=== PATIENT | female | born 1985 | race American Indian/Alaskan Native ===

== ENCOUNTER 2017-10-08 22:50 | Emergency (ER) | payer MEDICAID ==
[2017-10-09 00:54] VITALS: BP 125/57
== END 2017-10-09 01:00 | disposition left against medical advice (07) ==
LOC: ED 22:50
DX: J45.909 Unspecified asthma, uncomplicated (principal); Z86.711 Personal history of pulmonary embolism; Z53.21 Procedure and treatment not carried out due to patient leaving prior to being seen by health care provider

== ENCOUNTER 2018-01-05 17:18 | Emergency (ER) | payer MEDICAID ==
[2018-01-05 18:16] VITALS: BP 125/80
[2018-01-05 19:45] LABS: Bilirubin,Urine NEG (Negative); Blood,Urine NEG (Negative); Color,Urine Yellow (Yellow); Mucus,Urine 3+ /HPF
[2018-01-05 20:18] LABS: HCG Qualitative,Urine Negative (Negative)
--- NOTE | 2018-01-05 20:53 | Emergency Department Report ---
ED Female HPI - General Chief complaint: Urogenital-Female Stated complaint: STOMACH PAIN/TOOTH ACHE Time Seen by Provider: 01/05/18 20:29 Source: patient Mode of arrival: Ambulatory Limitations: No Limitations - History of Present Illness Initial comments: Patient present to complaint was dysuria frequency urgency no vaginal discharge no vaginal bleeding last menstrual cycle was 8 weeks ago states only when , same complaint is normal history of dental caries symptoms aching with hot and cold sensitivity, patient denies throat or ear pain . No exacerbating or relieving factors to either problem is no fever no chills no nausea no vomiting Complaint: dysuria Onset/Timin -: week(s) Severity: mild Severity scale (0 -10): 2 Improves with: none Worsens with: urination Are you Now?: No Last Menstrual Period: 11/03/17 EDC: 08/10/18 Associated Symptoms: dysuria - Related Data Sexually active: Yes : 5 Para: 5 A: 0 Home Medications Medication Instructions Recorded Confirmed Last Taken Enoxaparin [Lovenox] 0 ml SUB-Q QDAY 04/24/14 04/24/14 Unknown Vits96/Iron Fum/Folic 1 each PO QDAY 04/24/14 04/24/14 Unknown [ Tablet] Previous Rx's Medication Instructions Recorded Last Taken Type Acetaminophen/Codeine [Tylenol #3] 1 tab PO Q6H PRN #10 tab 07/31/14 Unknown Rx Amoxicillin [Amoxicillin TAB] 875 mg PO BID #20 tablet 07/31/14 Unknown Rx Acetaminophen [Mapap Arthritis 650 mg PO Q8HR PRN #20 tablet.er 10/20/14 Unknown Rx Pain] Ibuprofen [Motrin] 600 mg PO Q8H PRN #20 tablet 10/20/14 Unknown Rx Acetaminophen/Codeine [Tylenol #3] 1 tab PO Q6H PRN #14 tab 05/11/15 Unknown Rx Amoxicillin/K Clav Tab [Augmentin 1 tab PO Q12HR #14 tab 05/11/15 Unknown Rx 875 mg] Ondansetron [Zofran Odt] 4 mg PO QID #14 tab.rapdis 05/11/15 Unknown Rx Cephalexin [Keflex] 500 mg PO TID #30 capsule 01/05/18 Unknown Rx Chlorhexidine Mouthwash [Peridex] 15 ml MM BID #1 bottle 01/05/18 Unknown Rx Ibuprofen [Ibu] 800 mg PO TID PRN #30 tablet 01/05/18 Unknown Rx Allergies Allergy/AdvReac Type Severity Reaction Status Date / Time No Known Allergies Allergy Verified 04/24/14 00:47 ED Review of Systems ROS: Stated complaint: STOMACH PAIN/TOOTH ACHE Other details as noted in HPI Constitutional: denies: chills, fever Eyes: denies: eye pain, eye discharge, vision change ENT: dental pain. denies: ear pain, throat pain, hearing loss, epistaxis, congestion Respiratory: denies: cough, shortness of breath, wheezing Cardiovascular: denies: chest pain, palpitations Endocrine: no symptoms reported Gastrointestinal: denies: abdominal pain, nausea, diarrhea Genitourinary: urgency, dysuria, frequency. denies: hematuria, discharge, abnormal menses, dyspareunia Musculoskeletal: denies: back pain, joint swelling, arthralgia Skin: denies: rash, lesions Neurological: denies: headache, weakness, paresthesias Psychiatric: denies: anxiety, depression Hematological/Lymphatic: denies: easy bleeding, easy bruising ED Past Medical Hx - Past Medical History Hx Hypertension: No Hx Diabetes: No Hx Pulmonary Embolism: Yes (2011 @ [facility]) Hx Renal Disease: No Hx Sickle Cell Disease: No Hx Seizures: No Hx Asthma: No Hx HIV: No Additional medical history: PE 2011 - Surgical History Additional Surgical History: D&C 06/2013. - Social History Smoking Status: Never Smoker Substance Use Type: None - Medications Home Medications: Home Medications Medication Instructions Recorded Confirmed Last Taken Type Enoxaparin [Lovenox] 0 ml SUB-Q QDAY 04/24/14 04/24/14 Unknown History Vits96/Iron Fum/Folic 1 each PO QDAY 04/24/14 04/24/14 Unknown History [ Tablet] Acetaminophen/Codeine [Tylenol #3] 1 tab PO Q6H PRN #10 tab 07/31/14 Unknown Rx Amoxicillin [Amoxicillin TAB] 875 mg PO BID #20 tablet 07/31/14 Unknown Rx Acetaminophen [Mapap Arthritis 650 mg PO Q8HR PRN #20 tablet.er 10/20/14 Unknown Rx Pain] Ibuprofen [Motrin] 600 mg PO Q8H PRN #20 tablet 10/20/14 Unknown Rx Acetaminophen/Codeine [Tylenol #3] 1 tab PO Q6H PRN #14 tab 05/11/15 Unknown Rx Amoxicillin/K Clav Tab [Augmentin 1 tab PO Q12HR #14 tab 05/11/15 Unknown Rx 875 mg] Ondansetron [Zofran Odt] 4 mg PO QID #14 tab.rapdis 05/11/15 Unknown Rx Cephalexin [Keflex] 500 mg PO TID #30 capsule 01/05/18 Unknown Rx Chlorhexidine Mouthwash [Peridex] 15 ml MM BID #1 bottle 01/05/18 Unknown Rx Ibuprofen [Ibu] 800 mg PO TID PRN #30 tablet 01/05/18 Unknown Rx ED Physical Exam - General Limitations: No Limitations General appearance: alert, in no apparent distress - Head Head exam: Present: atraumatic, normocephalic - Eye Eye exam: Present: normal appearance - Expanded ENT Exam Expanded Teeth exam: Present: dental tenderness # (18 mild erythema mild gum swelling no facial swelling no focal abscess ) - Neck Neck exam: Present: normal inspection, full ROM. Absent: tenderness, lymphadenopathy, thyromegaly - Respiratory Respiratory exam: Present: normal lung sounds bilaterally. Absent: respiratory distress - Cardiovascular Cardiovascular Exam: Present: regular rate, normal rhythm. Absent: systolic murmur, diastolic murmur, rubs, gallop - GI/Abdominal GI/Abdominal exam: Present: soft, normal bowel sounds - Extremities Exam Extremities exam: Present: normal inspection - Back Exam Back exam: Present: normal inspection - Neurological Exam Neurological exam: Present: alert, oriented X3, normal gait - Psychiatric Psychiatric exam: Present: normal affect, normal mood - Skin Skin exam: Present: warm, dry, intact, normal color. Absent: rash ED Course Vital Signs 01/05/18 18:13 Temperature 98.2 F Pulse Rate 83 Respiratory 18 Rate Blood Pressure 125/80 O2 Sat by Pulse 98 Oximetry ED Medical Decision Making - Medical Decision Making This is a UTI was infected dental caries problems not related plan Keflex by mouth and ibuprofen Peridex. Patient will follow up with dentist in 2 - 3 days Patient will follow up PCP in 2-3 days pt verbalized agreement and understanding with discharge plan. Critical care attestation.: If time is entered above; I have spent that time in minutes in the direct care of this critically ill patient, excluding procedure time. ED Disposition Clinical Impression: Infected dental carries UTI (urinary tract infection) Qualifiers: Urinary tract infection type: acute cystitis Hematuria presence: without hematuria Qualified Code(s): N30.00 - Acute cystitis without hematuria Disposition: TO HOME OR SELFCARE Is pt being admited?: No Does the pt Need Aspirin: No Condition: Good Instructions: Dental Caries (ED), Urinary Tract Infection in Women (ED) Prescriptions: Cephalexin [Keflex] 500 mg PO TID #30 capsule Chlorhexidine Mouthwash [Peridex] 15 ml MM BID #1 bottle Ibuprofen [Ibu] 800 mg PO TID PRN #30 tablet PRN Reason: pain Referrals: [facility] [Outside] - 3-5 Days Forms: Work/School Release Form(ED) Time of Disposition: 20:59
== END 2018-01-05 22:00 | disposition home or self-care (01) ==
LOC: ED 17:18
DX: N30.00 Acute cystitis without hematuria (principal); K02.9 Dental caries, unspecified; Z86.711 Personal history of pulmonary embolism
CPT/HCPCS: 81001; 81025

== ENCOUNTER 2018-01-14 16:24 | Emergency (ER) | payer MEDICAID ==
[2018-01-14 17:47] LABS: Hematocrit 38.4 % (30.3-42.9); Hemoglobin 12.4 gm/dl (10.1-14.3); Mean Corpuscular HGB Conc 32 % (30-34); Mean Corpuscular Hemoglobin 29 pg (28-32); Mean Corpuscular Volume 89 fl (79-97); Platelet Count 238 K/mm3 (140-440); Red Blood Count 4.29 M/mm3 (3.65-5.03); Red Cell Distribution Width 14.1 % (13.2-15.2)
[2018-01-14 18:06] LABS: BUN/Creatinine Ratio 9; Blood Urea Nitrogen 6 mg/dL (7-17); Calcium 9.3 mg/dL (8.4-10.2); Hemolysis Index 4
--- NOTE | 2018-01-14 20:11 | XRay Report ---
FINAL REPORT PROCEDURE: XR CHEST ROUTINE 2V TECHNIQUE: PA and lateral chest radiographs were obtained. CPT 73341 HISTORY: chest pain COMPARISON: No prior studies are available for comparison. FINDINGS: Heart: Normal. Mediastinum/Vessels: Normal. Lungs/Pleural space: Normal. Bony thorax: Mild degree levoscoliosis is noted involving upper thoracic spine. Other: IMPRESSION: Normal examination.
[2018-01-14 20:55] LABS: Anisocytosis 1+; Basophils % (Manual) 0 % (0.0-1.8); Platelet Estimate Consistent w Auto; Total Cells Counted 100
[2018-01-14] MEDS ORDERED: TORADOL IV ONE (21:24)
--- NOTE | 2018-01-14 21:29 | Emergency Department Report ---
ED Chest Pain HPI - General Chief Complaint: Dyspnea/Respdistress Stated Complaint: CHEST PAIN Time Seen by Provider: 01/14/18 20:55 Source: patient Mode of arrival: Ambulatory Limitations: No Limitations - History of Present Illness Initial Comments: 32-year-old female presents to her chest pain x 4 days. Patient reports pain is in left chest. States feels like a pulled muscle. She reports associated shortness of breath. States pain is intermittent, worse with deep breaths, sneezing. Patient reported syncopal episode 4 days ago while at pain, but attributed this to being overheated. Patient reports history of PE several years ago during that ended in termination. Patient currently denies leg pain, leg swelling, fever, cough. States is not on control at this time. MD Complaint: chest pain -: days(s) (4) Onset: during rest Pain Location: left chest Pain Radiation: none Severity: moderate Severity scale (0 -10): 9 Quality: tightness, other (feels like pulled muscle) Consistency: intermittent Improves With: nothing Worsens With: inspiration re: dyspnea. denies: nausea, vomting, diaphoresis Other Symptoms: syncope. denies: cough, fever, leg swelling Treatments Prior to Arrival: none - Related Data Home Medications Medication Instructions Recorded Confirmed Last Taken Enoxaparin [Lovenox] 0 ml SUB-Q QDAY 04/24/14 04/24/14 Unknown Vits96/Iron Fum/Folic 1 each PO QDAY 04/24/14 04/24/14 Unknown [ Tablet] Previous Rx's Medication Instructions Recorded Last Taken Type Acetaminophen/Codeine [Tylenol #3] 1 tab PO Q6H PRN #10 tab 07/31/14 Unknown Rx Amoxicillin [Amoxicillin TAB] 875 mg PO BID #20 tablet 07/31/14 Unknown Rx Acetaminophen [Mapap Arthritis 650 mg PO Q8HR PRN #20 tablet.er 10/20/14 Unknown Rx Pain] Ibuprofen [Motrin] 600 mg PO Q8H PRN #20 tablet 10/20/14 Unknown Rx Acetaminophen/Codeine [Tylenol #3] 1 tab PO Q6H PRN #14 tab 05/11/15 Unknown Rx Amoxicillin/K Clav Tab [Augmentin 1 tab PO Q12HR #14 tab 05/11/15 Unknown Rx 875 mg] Ondansetron [Zofran Odt] 4 mg PO QID #14 tab.rapdis 05/11/15 Unknown Rx Cephalexin [Keflex] 500 mg PO TID #30 capsule 01/05/18 Unknown Rx Chlorhexidine Mouthwash [Peridex] 15 ml MM BID #1 bottle 01/05/18 Unknown Rx Ibuprofen [Ibu] 800 mg PO TID PRN #30 tablet 01/05/18 Unknown Rx Methocarbamol [Robaxin-750] 750 mg PO Q6HR PRN #20 tablet 01/14/18 Unknown Rx Naproxen [Naprosyn] 500 mg PO BID #20 tablet 01/14/18 Unknown Rx Allergies Allergy/AdvReac Type Severity Reaction Status Date / Time No Known Allergies Allergy Verified 04/24/14 00:47 Heart Score - HEART Score History: Slightly suspicious EKG: Normal Age: < 45 Risk factors: No known risk factors Troponin: < normal limit HEART Score: 0 - Critical Actions Critical Actions: 0-3 pts:0.9-1.7%risk of adverse cardiac event.Candidate for discharge ED Review of Systems ROS: Stated complaint: CHEST PAIN Other details as noted in HPI Comment: All other systems reviewed and negative Constitutional: denies: chills, fever Respiratory: shortness of breath Cardiovascular: chest pain. denies: palpitations Gastrointestinal: denies: abdominal pain, nausea Musculoskeletal: other (denies leg swelling). denies: arthralgia, myalgia Neurological: other (reports syncopal episode) ED Past Medical Hx - Past Medical History Hx Hypertension: No Hx Diabetes: No Hx Pulmonary Embolism: Yes (2012 @ [facility]) Hx Renal Disease: No Hx Sickle Cell Disease: No Hx Seizures: No Hx Asthma: No Hx HIV: No Additional medical history: PE 2011 - Surgical History Additional Surgical History: D&C 06/2013. - Social History Smoking Status: Never Smoker Substance Use Type: None - Medications Home Medications: Home Medications Medication Instructions Recorded Confirmed Last Taken Type Enoxaparin [Lovenox] 0 ml SUB-Q QDAY 04/24/14 04/24/14 Unknown History Vits96/Iron Fum/Folic 1 each PO QDAY 04/24/14 04/24/14 Unknown History [ Tablet] Acetaminophen/Codeine [Tylenol #3] 1 tab PO Q6H PRN #10 tab 07/31/14 Unknown Rx Amoxicillin [Amoxicillin TAB] 875 mg PO BID #20 tablet 07/31/14 Unknown Rx Acetaminophen [Mapap Arthritis 650 mg PO Q8HR PRN #20 tablet.er 10/20/14 Unknown Rx Pain] Ibuprofen [Motrin] 600 mg PO Q8H PRN #20 tablet 10/20/14 Unknown Rx Acetaminophen/Codeine [Tylenol #3] 1 tab PO Q6H PRN #14 tab 05/11/15 Unknown Rx Amoxicillin/K Clav Tab [Augmentin 1 tab PO Q12HR #14 tab 05/11/15 Unknown Rx 875 mg] Ondansetron [Zofran Odt] 4 mg PO QID #14 tab.rapdis 05/11/15 Unknown Rx Cephalexin [Keflex] 500 mg PO TID #30 capsule 01/05/18 Unknown Rx Chlorhexidine Mouthwash [Peridex] 15 ml MM BID #1 bottle 01/05/18 Unknown Rx Ibuprofen [Ibu] 800 mg PO TID PRN #30 tablet 01/05/18 Unknown Rx Methocarbamol [Robaxin-750] 750 mg PO Q6HR PRN #20 tablet 01/14/18 Unknown Rx Naproxen [Naprosyn] 500 mg PO BID #20 tablet 01/14/18 Unknown Rx ED Physical Exam - General Limitations: No Limitations General appearance: alert, in no apparent distress - Head Head exam: Present: atraumatic, normocephalic - Eye Eye exam: Present: normal appearance - ENT ENT exam: Present: mucous membranes moist - Neck Neck exam: Present: normal inspection, full ROM - Respiratory Respiratory exam: Present: normal lung sounds bilaterally. Absent: respiratory distress, wheezes, rales, chest wall tenderness - Cardiovascular Cardiovascular Exam: Present: regular rate, normal rhythm - GI/Abdominal GI/Abdominal exam: Present: soft. Absent: distended, tenderness - Extremities Exam Extremities exam: Present: normal inspection, full ROM, other (no edema present) . Absent: tenderness, calf tenderness - Neurological Exam Neurological exam: Present: alert, oriented X3 - Psychiatric Psychiatric exam: Present: normal affect, normal mood - Skin Skin exam: Present: warm, dry, intact, normal color ED Course Vital Signs 01/14/18 01/14/18 01/14/18 17:07 21:22 21:30 Temperature 98.5 F Pulse Rate 63 55 L Respiratory 16 14 Rate Blood Pressure 134/82 104/75 O2 Sat by Pulse 96 100 99 Oximetry 01/14/18 01/14/18 01/14/18 21:52 22:00 22:16 Temperature Pulse Rate Respiratory Rate Blood Pressure 104/75 104/75 104/75 O2 Sat by Pulse 100 100 100 Oximetry 01/14/18 01/14/18 22:30 22:47 Temperature Pulse Rate Respiratory Rate Blood Pressure 118/75 104/75 O2 Sat by Pulse 100 Oximetry ED Medical Decision Making - Lab Data Result diagrams: 01/14/18 17:13 01/14/18 17:13 - EKG Data -: EKG Interpreted by Me EKG shows normal: sinus rhythm, axis, intervals, QRS complexes, ST-T waves Rate: normal - EKG Data Interpretation: normal EKG - Radiology Data Radiology results: report reviewed, image reviewed - Medical Decision Making 32-year-old female with chest pain and syncopal episode. Chest x-ray and CTA Chest normal. EKG normal with no signs of ischemia. Troponin normal. Pain likely due to chest wall pain or pleurisy. Patient comfortable in no distress. Will prescribe anti-inflammatories were, advised patient to follow up with PCP. Pt given return precautions - Differential Diagnosis PE, chest wall pain, ACS, pneumonia Critical care attestation.: If time is entered above; I have spent that time in minutes in the direct care of this critically ill patient, excluding procedure time. ED Disposition Clinical Impression: Chest pain Disposition: - TO HOME OR SELFCARE Is pt being admited?: No Condition: Stable Instructions: Chest Pain (ED), Pleurisy (ED), Costochondritis (ED) Prescriptions: Methocarbamol [Robaxin-750] 750 mg PO Q6HR PRN #20 tablet PRN Reason: Spasms Naproxen [Naprosyn] 500 mg PO BID #20 tablet Referrals: PRIMARY CARE [Primary Care Provider] - 3-5 Days [facility] [Provider Group] - 3-5 Days Time of Disposition: 22:40
--- NOTE | 2018-01-14 22:22 | Cat Scan Report ---
FINAL REPORT PROCEDURE: CT ANGIO CHEST TECHNIQUE: Computerized tomographic angiography of the chest was performed after the IV injection of iodinated nonionic contrast including image processing. The image data was postprocessed using 2-dimensional multiplanar reformatted (MPR) and 3-dimensional (MIP and/or volume rendered) techniques. HISTORY: chest pain COMPARISON: No prior studies are available for comparison. FINDINGS: Heart and pericardium: Normal. Thoracic aorta: Normal. Pulmonary vasculature: Normal. Lymph nodes: No enlarged thoracic lymph nodes. Lungs: Normal. Pleural space: No effusion, thickening, or pneumothorax. Musculoskeletal structures: No significant abnormality. Upper abdominal structures: No significant abnormality. IMPRESSION: Unremarkable study
[2018-01-14 22:53] VITALS: BP 104/75
== END 2018-01-14 22:53 | disposition home or self-care (01) ==
LOC: ED 16:24
DX: R07.89 Other chest pain (principal); Z86.718 Personal history of other venous thrombosis and embolism
CPT/HCPCS: 36415; 71046; 71275; 80048; 84484; 84703; 85007; 85025; 85379; 93005; 93010; 96374; 99284; J1885; Q9967